=== PATIENT | female | born 1955 | race Caucasian/White ===

== ENCOUNTER 2016-10-09 21:12 | Inpatient (IN) | payer BC ==
[~2016-10-09] VITALS: Ht 170.2 cm; Wt 55.0 kg
[2016-10-09] MEDS ORDERED: SODIUM CHLORIDE 0.9% 500ML 500 ML IV STA (21:53)
[2016-10-09] MEDS ORDERED: ONDANSETRON INJ 2 MG/ML 2 ML VIAL IV STA (21:53)
[2016-10-09] MEDS ORDERED: MoRPHine SULFATE 4 MG/ML 1 ML CARP\\VIAL IV STA (21:53)
[2016-10-09] MEDS ORDERED: SODIUM CHLORIDE 0.9% 1000ML 1,000 ML IV STA ×2 (21:53→22:04)
[2016-10-09 22:08] LABS: BASO % 0.2 %; BASO ABS # 0.02 K/uL (0-0.2); COMPLETE YES; EOS % 0.7 %; HEMATOCRIT 40.3 % (37-47); IG% 0.3 %; LYMPH % 12.5 %; LYMPH ABS # 1.33 K/uL (1.2-3.4); MEAN CORPUSCULAR HEMOGLOBIN 30.6 pg (25-34); MEAN PLATELET VOLUME 10.6 fL (7.4-10.4); MONO % 5.9 %; NEUT % 80.4 %; PLATELET COUNT 234 K/uL (130-400); RED BLOOD COUNT 4.48 M/uL (4.2-5.4); WHITE BLOOD COUNT 10.61 K/uL (4.8-10.8)
[2016-10-09] MEDS ORDERED: OPTIRAY 320 IV PRN (22:15)
[2016-10-09] MEDS ORDERED: FENTANYL CITRATE INJ 50 MCG/1 ML 2 ML VIAL IV STA ×2 (22:16→22:43)
[2016-10-09 22:23] LABS: PROTHROMBIN TIME (PATIENT) 10.7 SECONDS (9.0-12.0)
--- NOTE | 2016-10-09 22:24 | DIAGNOSTIC IMAGING REPORT ---
CHEST ONE VIEW PORTABLE CLINICAL HISTORY: Chest pain. COMPARISON STUDY: No previous studies for comparison. FINDINGS: Positioning on this exam is suboptimal. There is no pneumothorax or pleural effusion. There is no evidence of pulmonary edema. Cardiac size is normal. Nipple shadows project over the chest. IMPRESSION: No acute cardiopulmonary findings. Electronically signed by: Alphonso Tyler M.D. 10/09/2016 10:22 PM Dictated Date/Time: 10/09/2016 10:21 PM
[2016-10-09 22:26] LABS: ALT/SGPT 35 U/L (12-78); BLOOD UREA NITROGEN 20 mg/dl (7-18); BUN/CREATININE RATIO 24.1 (10-20); CALCIUM 9.6 mg/dl (8.5-10.1); CARBON DIOXIDE 29 mmol/L (21-32); CHLORIDE 102 mmol/L (98-107); CREATININE 0.83 mg/dl (0.60-1.20); GLUCOSE 159 mg/dl (70-99); MAGNESIUM 2.1 mg/dl (1.8-2.4); POTASSIUM 3.7 mmol/L (3.5-5.1); SODIUM 141 mmol/L (136-145)
[2016-10-09 22:30] LABS: ALKALINE PHOSPHATASE 98 U/L (45-117); AST/SGOT 33 U/L (15-37); CKMB/CK RATIO 1.4 (0-3.0)
--- NOTE | 2016-10-09 22:47 | DIAGNOSTIC IMAGING REPORT ---
CT ANGIOGRAPHY OF THE CHEST, ABDOMEN, AND PELVIS CLINICAL HISTORY: Chest and abdominal pain. COMPARISON STUDY: Chest radiograph performed earlier today. TECHNIQUE: Before and following the IV administration of 116 mL of Optiray-320, helical axial images of the chest, abdomen and pelvis were obtained. Maximal intensity projections and sagittal and coronal reformats were viewed on an independent 3D workstation. IV contrast was administered without complication. CT DOSE: 642.64 mGy.cm FINDINGS: The caliber of the aorta is normal. There is no evidence for intramural hematoma or dissection within the thoracic or abdominal aorta. Central airways are patent. Lungs are clear. There is no thoracic lymphadenopathy. No pneumothorax or pleural effusion is present. No pneumatosis, free air or portal venous gas is present. Arterial phase images of the liver, spleen, adrenal glands, kidneys and pancreas are unremarkable. Evaluation of the abdomen and pelvis is suboptimal given the lack of oral contrast. The caliber and wall thickness of small and large bowel are normal. There is a 5.9 x 4.5 cm mass-like abnormality along the left posterior lateral aspect of the uterus. This may be related to the left ovary. This is suboptimally assessed on this exam. The appendix is not visualized. There is no right lower quadrant inflammation. Skeletal structures are unremarkable. There is no hydronephrosis. No biliary or pancreatic ductal dilatation is present. IMPRESSION: 1. No aortic dissection. No acute process within the chest. 2. 5.9 x 4.5 cm mass-like abnormality along the left posterior aspect of the uterus. This is suboptimally assessed on this exam but likely arises from the left ovary and a pelvic ultrasound is recommended to evaluate for a mass. Electronically signed by: Alphonso Tyler M.D. 10/09/2016 10:45 PM Dictated Date/Time: 10/09/2016 10:30 PM
[2016-10-09] MEDS ORDERED: ACET-1256 PO (23:00)
[2016-10-09 23:26] LABS: URINE APPEARANCE CLEAR (CLEAR); URINE BILIRUBIN NEG (NEG); URINE COLOR YELLOW; URINE EPITHELIAL CELL AUTO >30 /lpf (0-5); URINE NITRITE NEG (NEG); URINE PH 5.5 (4.5-7.5); URINE SPECIFIC GRAVITY 1.023 (1.000-1.030); UROBILINOGEN NEG (NEG); ZZUR CULT IF INDIC CLEAN CATCH NO
[2016-10-09 23:37] LABS: MANUAL MICROSCOPIC REQUIRED? NO; REVIEW REQ? YES
[2016-10-09 23:41] LABS: PREG INTERNAL NEGATIVE QC NEG CLEAR BACKGROUND; PREG INTERNAL POSITIVE QC POS CONTROL LINE
[2016-10-09 23:58] LABS: ISTAT CREATININE 0.7 mg/dl (0.6-1.3); ISTAT HEMOGLOBIN 13.3 g/dl (12.0-16.0); ISTAT IONIZED CALCIUM 1.01 mmol/l (1.12-1.32)
[2016-10-10] VITALS (9 sets, daily range): BP systolic 100–123; BP diastolic 59–74; PULSE 56–90; TEMP 36.4–36.7; O2SAT 95–98; Ht 170.2 cm; Wt 55.0 kg
[2016-10-10] MEDS ORDERED: LACTATED RINGER'S 1000ML 1,000 ML IV SCH (00:28)
[2016-10-10] MEDS ORDERED: FENTANYL CITRATE INJ 50 MCG/1 ML 2 ML VIAL IV STA (00:29)
[2016-10-10] MEDS ORDERED: ONDANSETRON INJ 2 MG/ML 2 ML VIAL IV STA (00:38)
--- NOTE | 2016-10-10 00:44 | EMERGENCY ROOM VISIT NOTE ---
History First contact with patient: 21:43 Chief Complaint: ABDOMINAL PAIN Stated Complaint: SEVERE ABDOMINAL PAIN Nursing Triage Summary: see triage note History of Present Illness The patient is a 61 year old female who presents to the Emergency Room with complaints of severe sudden onset of left lower dominant pain that radiates up her chest described as severe, 10 out of 10. Nothing makes it better or worse. Patient remains of nausea. No history of similar symptoms in the past. She had an appendectomy many years ago. Patient states she is healthy and has no medical problems. Patient also states she feels lightheaded and weak. Patient denies fever, chills, cough, congestion, back pain, leg pain, numbness, tingling. No IV drug abuse. No recent alcohol. Review of Systems See HPI for pertinent positives & negatives. A total of 10 systems reviewed and were otherwise negative. Past Medical/Surgical History Appendectomy Social History Smoking Status: Never Smoker Smokeless Tobacco Use: No Drug Use: none Marital Status: Housing Status: lives with family Current/Historical Medications Scheduled Acetaminophen (Tylenol), 1,000 MG PO PRN UD Allergies Coded Allergies: No Known Allergies (Unverified , NONE, 06/08/09) Physical Exam Vital Signs Date Time Temp Pulse Resp B/P Pulse Ox O2 Delivery O2 Flow Rate FiO2 10/09/16 22:30 81 10/09/16 22:07 100 Room Air 10/09/16 22:06 100 Room Air 10/09/16 21:15 36.4 63 24 125/76 100 Room Air Physical Exam VITALS: Vitals are noted on the nurse's note and reviewed by myself. Vital signs stable. GENERAL: White female who appears in extreme pain diaphoretic SKIN: The skin was without rashes, erythema, edema, or bruising. There is no tenting of the skin. Capillary reflex less than 2 seconds. HEAD: Normocephalic atraumatic. EARS: External auditory canals clear, tympanic membranes pearly candelario without erythema or effusion bilaterally. EYES: Pupils equal round and reactive to light and accommodation. Conjunctivae without injection, sclerae without icterus. Extraocular movements intact. NOSE: Patent, turbinates without inflammation or discharge. MOUTH: Mucous membranes moist. Pharynx without erythema or exudate. Uvula midline. Airway patent. Tongue does not deviate. NECK: Supple without nuchal rigidity. No lymphadenopathy. No thyromegaly. Cervical spine is nontender. No JVD. HEART: Regular rate and rhythm without murmurs gallops or rubs. LUNGS: Clear to auscultation bilaterally without wheezes, rales or rhonchi. No dullness to percussion. No retractions or accessory muscle use. ABDOMEN: Positive bowel sounds x 4. Normal tympanic percussion. Soft, diffusely tender to palpation, without masses or organomegaly. Bellamy sign negative. + guarding and rebound tenderness. No CVA tenderness MUSCULOSKELETAL: No muscle atrophy, erythema, or edema noted. +2 peripheral pulses throughout NEURO: Patient was alert and oriented to person place and time. Normal sensation to light and sharp touch. No focal neurological deficits. Medical Decision & Procedures Laboratory Results 10/09/16 22:00 Red Blood Count 4.48, Mean Corpuscular Volume 90.0, Mean Corpuscular Hemoglobin 30.6, Mean Corpuscular Hemoglobin Concent 34.0, Mean Platelet Volume 10.6, Neutrophils (%) (Auto) 80.4, Lymphocytes (%) (Auto) 12.5, Monocytes (%) (Auto) 5.9, Eosinophils (%) (Auto) 0.7, Basophils (%) (Auto) 0.2, Neutrophils # (Auto) 8.53, Lymphocytes # (Auto) 1.33, Monocytes # (Auto) 0.63, Eosinophils # (Auto) 0.07, Basophils # (Auto) 0.02 10/09/16 22:00 Test 10/09/16 21:57 10/09/16 22:00 10/09/16 22:02 Bedside Lactic Acid Venous 2.02 mmol/L (0.90-1.70) White Blood Count 10.61 K/uL (4.8-10.8) Red Blood Count 4.48 M/uL (4.2-5.4) Hemoglobin 13.7 g/dL (12.0-16.0) Hematocrit 40.3 % (37-47) Mean Corpuscular Volume 90.0 fL (80-100) Mean Corpuscular Hemoglobin 30.6 pg (25-34) Mean Corpuscular Hemoglobin Concent 34.0 g/dl (32-36) Platelet Count 234 K/uL (130-400) Mean Platelet Volume 10.6 fL (7.4-10.4) Neutrophils (%) (Auto) 80.4 % Lymphocytes (%) (Auto) 12.5 % Monocytes (%) (Auto) 5.9 % Eosinophils (%) (Auto) 0.7 % Basophils (%) (Auto) 0.2 % Neutrophils # (Auto) 8.53 K/uL (1.4-6.5) Lymphocytes # (Auto) 1.33 K/uL (1.2-3.4) Monocytes # (Auto) 0.63 K/uL (0.11-0.59) Eosinophils # (Auto) 0.07 K/uL (0-0.5) Basophils # (Auto) 0.02 K/uL (0-0.2) RDW Standard Deviation 44.2 fL (36.4-46.3) RDW Coefficient of Variation 13.4 % (11.5-14.5) Immature Granulocyte % (Auto) 0.3 % Immature Granulocyte # (Auto) 0.03 K/uL (0.00-0.02) Prothrombin Time 10.7 SECONDS (9.0-12.0) Prothromb Time International Ratio 1.0 (0.9-1.1) Activated Partial Thromboplast Time 25.0 SECONDS (21.0-31.0) Partial Thromboplastin Ratio 1.0 Urine Color YELLOW Urine Appearance CLEAR (CLEAR) Urine pH 5.5 (4.5-7.5) Urine Specific [place] 1.023 (1.000-1.030) Urine Protein TRACE (NEG) Urine Glucose (UA) NEG (NEG) Urine Ketones TRACE (NEG) Urine Occult Blood NEG (NEG) Urine Nitrite NEG (NEG) Urine Bilirubin NEG (NEG) Urine Urobilinogen NEG (NEG) Urine Leukocyte Esterase NEG (NEG) Est Creatinine Clear Calc Drug Dose 62.6 ml/min Estimated GFR () 88.8 Estimated GFR (Non- 76.6 BUN/Creatinine Ratio 24.1 (10-20) Calcium Level 9.6 mg/dl (8.5-10.1) Magnesium Level 2.1 mg/dl (1.8-2.4) Total Bilirubin 0.3 mg/dl (0.2-1) Direct Bilirubin 0.1 mg/dl (0-0.2) Aspartate Amino Transf (AST/SGOT) 33 U/L (15-37) Alanine Aminotransferase (ALT/SGPT) 35 U/L (12-78) Alkaline Phosphatase 98 U/L (45-117) Total Creatine Kinase 77 U/L (26-192) Creatine Kinase MB 1.1 ng/ml (0.5-3.6) Creatine Kinase MB Ratio 1.4 (0-3.0) Troponin I < 0.015 ng/ml (0-0.045) Total Protein 7.2 gm/dl (6.4-8.2) Albumin 4.0 gm/dl (3.4-5.0) Lipase 267 U/L (73-393) Human Chorionic Gonadotropin, Qual NEG (NEG) Bedside Hemoglobin 13.3 g/dl (12.0-16.0) Bedside Hematocrit 39 % (37-47) Bedside Sodium 140 mEq/L (135-144) Bedside Potassium 4.0 mEq/L (3.3-5.0) Bedside Chloride 101 mEq/L (101-112) Bedside Total CO2 27 mEq/l (24-31) Anion Gap 16.0 mmol/L (16-25) Bedside Blood Urea Nitrogen 24 mg/dl (7-18) Bedside Creatinine 0.7 mg/dl (0.6-1.3) Bedside Glucose (other) 158 mg/dl (70-99) Bedside Ionized Calcium (Vinicius) 1.01 mmol/l (1.12-1.32) Medications Administered Medications (Trade) Dose Ordered Sig/Earnest Route Start Time Stop Time Status Last Admin Dose Admin Morphine Sulfate (MoRPHine SULFATE INJ) 4 mg NOW STAT IV 10/09/16 21:53 10/09/16 21:56 DC 10/09/16 22:11 4 MG Ondansetron HCl 4 mg 4 mg NOW STAT IV 10/09/16 21:53 10/09/16 21:56 DC 10/09/16 22:10 4 MG Sodium Chloride 500 ml @ 999 mls/hr Q31M STAT IV 10/09/16 21:53 10/09/16 22:23 DC 10/09/16 22:31 999 MLS/HR Sodium Chloride 1,000 ml @ 125 mls/hr Q8H STAT IV 10/09/16 21:53 10/10/16 05:52 10/09/16 22:31 125 MLS/HR Sodium Chloride (Nss 1000ml) 1,000 ml @ 999 mls/hr Q1H1M STAT IV 10/09/16 22:04 10/09/16 23:04 DC 10/09/16 22:30 999 MLS/HR Fentanyl Citrate (Fentanyl Inj) 50 mcg NOW STAT IV 10/09/16 22:16 10/09/16 22:18 DC 10/09/16 22:29 50 MCG Fentanyl Citrate (Fentanyl Inj) 50 mcg NOW STAT IV 10/09/16 22:43 10/09/16 22:45 DC 10/09/16 22:43 50 MCG Fentanyl Citrate (Fentanyl Inj) 50 mcg NOW STAT IV 10/10/16 00:29 10/10/16 00:30 DC 10/10/16 00:29 50 MCG ED Course Prior records/ancillary studies reviewed. Triage Nursing notes reviewed. Additional history obtained from family. The patient's history was concerning for abdominal pain. Differential diagnosis: Etiologies such as dissection, torsion, cardiac, diverticulitis, PUD, biliary pathology, UTI, pancreatitis, obstruction, mesenteric ischemia, aortic pathology , infections, inflammatory bowel disease, renal colic, as well as others were entertained. Physical examination findings: As above. ER treatment provided: 2 IV lines, morphine, fentanyl, Zofran On reassessment the patient felt better. Diagnostics interpreted by me: ECG: Normal sinus, normal intervals, no acute ST-T wave changes. Impression normal sinus rhythm interpreted by myself The labs revealed stable H&H. Elevated lactic acid. Imaging studies: US PELVIC/ENDOVAG: Hypoechoic left adnexal mass measuring 5.4 cm with small echogenic and tiny cystic components. This moves independently from the uterus with compression. No internal vascular flow detected. Differential considerations include torsed ovary, solid ovarian mass, or pedunculated subserosal fibroid. Correlate with symptoms. MRI could be used for further evaluation if indicated. Right ovary is unremarkable. Trace free fluid in the pelvis. Radiologist: Darren Cleary MD Study ready at 00:04 and initial results transmitted at 00:22 Critical Value Communications Clear Time Type Notes 10/10/16 00:26 Call Doctor Regarding Above CT ANGIOGRAPHY OF THE CHEST, ABDOMEN, AND PELVIS CLINICAL HISTORY: Chest and abdominal pain. COMPARISON STUDY: Chest radiograph performed earlier today. TECHNIQUE: Before and following the IV administration of 116 mL of Optiray-320, helical axial images of the chest, abdomen and pelvis were obtained. Maximal intensity projections and sagittal and coronal reformats were viewed on an independent 3D workstation. IV contrast was administered without complication. CT DOSE: 642.64 mGy.cm FINDINGS: The caliber of the aorta is normal. There is no evidence for intramural hematoma or dissection within the thoracic or abdominal aorta. Central airways are patent. Lungs are clear. There is no thoracic lymphadenopathy. No pneumothorax or pleural effusion is present. No pneumatosis, free air or portal venous gas is present. Arterial phase images of the liver, spleen, adrenal glands, kidneys and pancreas are unremarkable. Evaluation of the abdomen and pelvis is suboptimal given the lack of oral contrast. The caliber and wall thickness of small and large bowel are normal. There is a 5.9 x 4.5 cm mass-like abnormality along the left posterior lateral aspect of the uterus. This may be related to the left ovary. This is suboptimally assessed on this exam. The appendix is not visualized. There is no right lower quadrant inflammation. Skeletal structures are unremarkable. There is no hydronephrosis. No biliary or pancreatic ductal dilatation is present. IMPRESSION: 1. No aortic dissection. No acute process within the chest. 2. 5.9 x 4.5 cm mass-like abnormality along the left posterior aspect of the uterus. This is suboptimally assessed on this exam but likely arises from the left ovary and a pelvic ultrasound is recommended to evaluate for a mass. CHEST ONE VIEW PORTABLE CLINICAL HISTORY: Chest pain. COMPARISON STUDY: No previous studies for comparison. FINDINGS: Positioning on this exam is suboptimal. There is no pneumothorax or pleural effusion. There is no evidence of pulmonary edema. Cardiac size is normal. Nipple shadows project over the chest. IMPRESSION: No acute cardiopulmonary findings. Electronically signed by: Alphonso Tyler M.D. 10/09/2016 10:22 PM Electronically signed by: Alphonso Tyler M.D. 10/09/2016 10:45 PM Consultation: A consultation was placed with the OB, Dr Long. The case was discussed and diagnostics were reviewed. The patient was evaluated in the ER for further treatment. She evaluated the patient will take the patient for for possible ovarian torsion. Exam and history seem consistent with left ovarian torsion. Patient is being taken to the OR for further evaluation treatment by OB. She has a stable H&H. Blood bank was reviewed. No leukocytosis. Elevated lactic acid. By the evaluation outlined above emergent etiologies such as appendicitis, diverticulitis, PUD, biliary pathology, UTI, pancreatitis, obstruction, mesenteric ischemia, aortic pathology, infections, inflammatory bowel disease, renal colic, as well as others were deemed relatively unlikely. The pt informed about the findings as listed above. All questions were answered and pleased with the treatment. Case reviewed with my Attending Medical Decision As above Impression Primary Impression: Torsion of left ovary and ovarian pedicle Critical Care I have personally spent greater than 30 minutes of critical care time in the direct management of this patient. This includes bedside care, interpretation of diagnostic studies, and testing, discussion with consultants, patient, and family members, and other required patient management activities. This 30 minutes is in excess of all separately billable procedures. Departure Information Referrals Vipul Riojas M.D. (PCP) Patient Instructions My [facility]
[2016-10-10] MEDS ORDERED: MoRPHine SULFATE 2 MG/ML CARP ONE (00:47)
[2016-10-10] MEDS ORDERED: GLYCOPYRROLATE INJ 0.2 MG/ML VIAL ONE (00:47)
[2016-10-10] MEDS ORDERED: PROPOFOL IV EMULSION 10 MG/ML 20 ML VIAL IV ONE (00:47)
[2016-10-10] MEDS ORDERED: DEXAMETHASONE SOD INJ 4 MG/ML VIAL ONE (00:47)
[2016-10-10] MEDS ORDERED: ROCURONIUM BROMIDE 10 MG/ML 5 ML VIAL ONE (00:47)
[2016-10-10] MEDS ORDERED: LIDOCAINE HCL 2% 2 ML VIAL (20MG/ML) ONE (00:47)
[2016-10-10] MEDS ORDERED: ONDANSETRON INJ 2 MG/ML 2 ML VIAL ONE (00:47)
[2016-10-10] MEDS ORDERED: FENTANYL CITRATE INJ 50 MCG/1 ML 2 ML VIAL ONE (00:47)
[2016-10-10] MEDS ORDERED: NEOSTIGMINE METHYLSULFATE 5 MG/5 ML SYR ONE (00:47)
[2016-10-10] MEDS ORDERED: SUCCINYLCHOLINE CHLORIDE 20 MG/ML 10 ML VIAL IV ONE (00:47)
[2016-10-10] MEDS ORDERED: MIDAZOLAM HCL 1 MG/ML 2ML VIAL ONE (00:47)
--- NOTE | 2016-10-10 01:10 | HISTORY & PHYSICAL EXAMINATION ---
DATE OF ADMISSION: 10/10/2016 PRINCIPAL DIAGNOSES: Torsion of left ovary and acute abdominal pain. PRINCIPAL PROCEDURE: Exploratory laparotomy, left salpingo-oophorectomy and right salpingectomy. HISTORY OF PRESENT ILLNESS: The patient is a 61-year-old G4, P4-0-0-3 white female, postmenopausal, who presented with sudden onset of pain in her left lower quadrant approximately 1700 hours on 10/09/2016. Pain got progressively worse, made her nauseous and vomit. She denies any fever or chills. No diarrhea, no vaginal bleeding, no dysuria or pain with urination. She came to the Emergency Room. CT scan was first performed as she appeared to be presenting as a dissecting aortic aneurysm. The aorta, colon and bladder all appeared to be within normal limits. There is a mass behind the uterus on the left that is measuring 6 cm. Ultrasound confirmed the presence of this mass, which appears to be the left ovary. There is no blood supply to this mass consistent with a torsion. There is no free fluid in the pelvis, right ovary could not be identified. Because of the torsion and her continued pain, we will proceed to the OR for the exploratory laparotomy, left salpingectomy, left salpingo-oophorectomy and right salpingectomy. PAST MEDICAL HISTORY: Remarkable for osteopenia and a colon polyp that was benign. PAST SURGICAL HISTORY: Appendectomy in 1978. ALLERGIES: She has no known drug allergies, but NARCOTICS DO MAKE HER NAUSEOUS. SOCIAL HISTORY: She does not smoke. She drinks alcohol socially. OBSTETRICAL AND GYNECOLOGICAL HISTORY: No history of PID, VD or herpes. Her pap smears have been within normal limits, the most recent one was in 2013. She has had 4 vaginal births. She had one demise at 28 weeks. The appendectomy was actually done at approximately 12 weeks' gestation during . FAMILY HISTORY: Remarkable for family history of breast cancer and ovarian cancer. PHYSICAL EXAMINATION: VITAL SIGNS: She is afebrile. Vital signs are stable. LUNGS: Clear to auscultation. HEART: Regular rate and rhythm. No murmurs or gallops. ABDOMEN: Soft. There is hypoactive bowel sounds present. She is tender to palpation of the left lower quadrant and there is rebound present. There is milder tenderness in the right lower quadrant and upper quadrants. PELVIC: Deferred at this point because of the patient's discomfort. EXTREMITIES: Without edema and there is no calf tenderness present. ASSESSMENT AND PLAN: A 61-year-old multiparous female who is menopausal now with acute left lower quadrant pain with what appears to be a torsed left ovary with a cyst present on ultrasound and CT scan. We will proceed to the OR for exploratory laparotomy, left salpingo-oophorectomy and right salpingectomy. Please see the orders for further directions.
[2016-10-10] MEDS ORDERED: CEFAZOLIN SOD 1000MG/55 ML D5W IV ONE (01:31)
[2016-10-10] MEDS ORDERED: EpHEDrine SULFATE 50MG/5ML SYR ONE (02:09)
[2016-10-10] MEDS ORDERED: KETOROLAC TROMETHAMINE 30 MG/ML VIAL ONE ×2 (02:14→04:31)
[2016-10-10] MEDS ORDERED: D5W AND LACTATED RINGERS 1,000 ML IV SCH (02:50)
--- NOTE | 2016-10-10 02:50 | [facility] Operative Report ---
Operative Report Operative Date Oct 10, 2016. 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 Evelyn Long Varnish Maker Helper Surgeon(s) None Estimated Blood Loss 25ml Findings left ovary completely replaced by fibrotic , dense tumor. smooth capsule with obvious torsion including fallopian tube. right ovary atrophic., uterus & tube are normal. Fluids 600 Specimens A. Left fallopian tube and ovary B. Right fallopian tube Drains Mason to straight drainage Anesthesia GET Complication(s) None Disposition Surgical ICU I attest to the content of the Intraoperative Record and any orders documented therein. Any exceptions are noted below.
[2016-10-10] MEDS ORDERED: LACTATED RINGER'S 1000ML 1,000 ML IV PRN (02:52)
[2016-10-10] MEDS ORDERED: KETOROLAC TROMETHAMINE 30 MG/ML VIAL IV. PRN (03:00)
[2016-10-10] MEDS ORDERED: PROMETHAZINE HCL INJ 25 MG in SODIUM CHLORIDE 0.9% 50ML 50 ML IV PRN (03:00)
[2016-10-10] MEDS ORDERED: METOCLOPRAMIDE HCL INJ 5 MG/ML 2 ML VIAL IV PRN (03:00)
[2016-10-10] MEDS ORDERED: MEPERIDINE HCL 50 MG/ML CARP IV PRN (03:00)
[2016-10-10] MEDS ORDERED: ONDANSETRON INJ 2 MG/ML 2 ML VIAL IV PRN (03:00)
[2016-10-10] MEDS ORDERED: FENTANYL CITRATE INJ 50 MCG/1 ML 2 ML VIAL IV PRN (03:00)
[2016-10-10] MEDS ORDERED: MAGNESIUM HYDROXIDE SUSP 30 ML UDC PO PRN (03:00)
[2016-10-10] MEDS ORDERED: BISACODYL 10 MG SUPP PR PRN (03:00)
[2016-10-10] MEDS ORDERED: DiphenhydrAMINE HCL 50 MG/ML VIAL IV PRN (03:00)
[2016-10-10] MEDS ORDERED: ACETAMINOPHEN 500 MG TAB PO PRN (03:00)
[2016-10-10] MEDS ORDERED: MEPERIDINE HCL 75 MG/ML CARP IV PRN (03:00)
[2016-10-10] MEDS ORDERED: SENNA 8.6 MG TAB PO PRN (03:00)
--- NOTE | 2016-10-10 03:03 | Anesthesiology Progress Note ---
Anesthesia Post Op Note Date & Time Oct 10, 2016 at 03:03 Vital Signs Pain Intensity: 0.0 Vital Signs Past 12 Hours Date Time Temp Pulse Resp B/P Pulse Ox O2 Delivery O2 Flow Rate FiO2 10/10/16 02:45 36.5 70 16 126/73 98 Nasal Cannula 4 10/10/16 00:38 55 16 147/84 97 Nasal Cannula 2.0 10/09/16 22:30 81 10/09/16 22:07 100 Room Air 10/09/16 22:06 100 Room Air 10/09/16 21:15 36.4 63 24 125/76 100 Room Air Notes Mental Status: alert / awake / arousable, participated in evaluation Pt Amnestic to Procedure: Yes Nausea / Vomiting: adequately controlled Pain: adequately controlled Airway Patency, RR, SpO2: stable & adequate BP & HR: stable & adequate Hydration State: stable & adequate Anesthetic Complications: no major complications apparent Pt doing well.
[2016-10-10] MEDS ORDERED: CEFAZOLIN IV 1,000 MG in DEXTROSE 5% 50ML 50 ML IV SCH (06:00)
--- NOTE | 2016-10-10 06:33 | [facility] Post Operative Brief Note ---
Immediate Operative Summary Operative Date Oct 10, 2016. Pre-Operative Diagnosis Torsion of left ovary and acute abdominal pain Post-Operative Diagnosis Same as pre-operative Procedure(s) Performed Exploratory laparotomy with left salpingo-oopherectomy and right salpingectomy Surgeon Dr. Evelyn Long Band Saw Filer Surgeon(s) None Estimated Blood Loss 25ml Fluids (cc crystalloids) 600 Specimens A. Left fallopian tube and ovary B. Right fallopian tube
--- NOTE | 2016-10-10 06:36 | OB/GYN Progress Note ---
SOFTWARE FIRMWARE ENGINEER Progress Note Date of Service Oct 10, 2016. Subjective conversation w/ patient, physical exam Voiding: yaoub catheter in place Diet Tolerance: Clear Liquids Notes: pain controlled for the most part by IV toradol Review of Systems Constitutional: No chills, No fatigue, No fever, No problem reported, No sweats , No weakness, No weight loss Objective Vital Signs Date Time Temp Pulse Resp B/P Pulse Ox O2 Delivery O2 Flow Rate FiO2 10/10/16 05:55 36.6 90 16 100/65 98 Room Air 10/10/16 04:55 36.4 71 16 117/74 95 Room Air 10/10/16 04:25 36.4 76 14 113/72 95 Room Air 10/10/16 03:55 95 Room Air 10/10/16 03:55 36.5 64 14 123/72 Room Air 10/10/16 03:40 36.4 75 16 120/73 97 Room Air 10/10/16 03:15 58 16 128/76 96 Room Air 10/10/16 03:11 58 16 126/82 95 Room Air 10/10/16 03:05 61 16 126/77 95 Room Air 10/10/16 03:00 61 16 130/78 96 Room Air 10/10/16 02:56 64 16 125/72 100 Room Air 10/10/16 02:45 36.5 70 16 126/73 98 Nasal Cannula 4 10/10/16 00:38 55 16 147/84 97 Nasal Cannula 2.0 10/09/16 22:30 81 10/09/16 22:07 100 Room Air 10/09/16 22:06 100 Room Air 10/09/16 21:15 36.4 63 24 125/76 100 Room Air Physical Exam General Appearance: WELL-APPEARING Abdomen: soft Incision Description: Clean, Dry & Intact Extremities: no calf tenderness Laboratory Results Last 24 Hours Test 10/09/16 21:57 10/09/16 22:00 10/09/16 22:02 Bedside Lactic Acid Venous 2.02 mmol/L White Blood Count 10.61 K/uL Red Blood Count 4.48 M/uL Hemoglobin 13.7 g/dL Hematocrit 40.3 % Mean Corpuscular Volume 90.0 fL Mean Corpuscular Hemoglobin 30.6 pg Mean Corpuscular Hemoglobin Concent 34.0 g/dl Platelet Count 234 K/uL Mean Platelet Volume 10.6 fL Neutrophils (%) (Auto) 80.4 % Lymphocytes (%) (Auto) 12.5 % Monocytes (%) (Auto) 5.9 % Eosinophils (%) (Auto) 0.7 % Basophils (%) (Auto) 0.2 % Neutrophils # (Auto) 8.53 K/uL Lymphocytes # (Auto) 1.33 K/uL Monocytes # (Auto) 0.63 K/uL Eosinophils # (Auto) 0.07 K/uL Basophils # (Auto) 0.02 K/uL RDW Standard Deviation 44.2 fL RDW Coefficient of Variation 13.4 % Immature Granulocyte % (Auto) 0.3 % Immature Granulocyte # (Auto) 0.03 K/uL Prothrombin Time 10.7 SECONDS Prothromb Time International Ratio 1.0 Activated Partial Thromboplast Time 25.0 SECONDS Partial Thromboplastin Ratio 1.0 Urine Color YELLOW Urine Appearance CLEAR Urine pH 5.5 Urine Specific [place] 1.023 Urine Protein TRACE Urine Glucose (UA) NEG Urine Ketones TRACE Urine Occult Blood NEG Urine Nitrite NEG Urine Bilirubin NEG Urine Urobilinogen NEG Urine Leukocyte Esterase NEG Urine WBC (Auto) 1-5 /hpf Urine RBC (Auto) 0-4 /hpf Urine Hyaline Casts (Auto) 10-30 /lpf Urine Epithelial Cells (Auto) >30 /lpf Urine Bacteria (Auto) NEG Urine Renal Epithelial Cells 0-5 /lpf Sodium Level 141 mmol/L Potassium Level 3.7 mmol/L Chloride Level 102 mmol/L Carbon Dioxide Level 29 mmol/L Anion Gap 10.0 mmol/L 16.0 mmol/L Blood Urea Nitrogen 20 mg/dl Creatinine 0.83 mg/dl Est Creatinine Clear Calc Drug Dose 62.6 ml/min Estimated GFR () 88.8 Estimated GFR (Non- 76.6 BUN/Creatinine Ratio 24.1 Random Glucose 159 mg/dl Calcium Level 9.6 mg/dl Magnesium Level 2.1 mg/dl Total Bilirubin 0.3 mg/dl Direct Bilirubin 0.1 mg/dl Aspartate Amino Transf (AST/SGOT) 33 U/L Alanine Aminotransferase (ALT/SGPT) 35 U/L Alkaline Phosphatase 98 U/L Total Creatine Kinase 77 U/L Creatine Kinase MB 1.1 ng/ml Creatine Kinase MB Ratio 1.4 Troponin I < 0.015 ng/ml Total Protein 7.2 gm/dl Albumin 4.0 gm/dl Lipase 267 U/L Human Chorionic Gonadotropin, Qual NEG Bedside Hemoglobin 13.3 g/dl Bedside Hematocrit 39 % Bedside Sodium 140 mEq/L Bedside Potassium 4.0 mEq/L Bedside Chloride 101 mEq/L Bedside Total CO2 27 mEq/l Bedside Blood Urea Nitrogen 24 mg/dl Bedside Creatinine 0.7 mg/dl Bedside Glucose (other) 158 mg/dl Bedside Ionized Calcium (Vinicius) 1.01 mmol/l Assessment and Plan Continue Routine Care: stable post-op course D/C ayoub catheter this morning advance diet as tolerated may want to go home this evening.
[2016-10-10 06:47] LABS: HEMATOCRIT 38.6 % (37-47)
--- NOTE | 2016-10-10 07:17 | DIAGNOSTIC IMAGING REPORT ---
PELVIC ULTRASOUND, TRANSABDOMINAL AND TRANSVAGINAL HISTORY: pelvic mass on CT COMPARISON: Chest abdomen pelvis CTA 10/09/2016. FINDINGS: Uterus: 5.8 x 3.5 x 4.0 cm. The uterus is retroflexed. Endometrial stripe: 3 mm in thickness. Right ovary: Normal in size and demonstrates normal color flow. Left ovary: There is a solid and cystic mass within the left adnexa which measures 4.7 x 4.7 x 5.0 cm. This contains a focal echogenic nodule measuring 3.8 x 1.2 x 2.9 cm and a cyst measuring 2.7 x 2.3 x 1.9 cm. This does demonstrate areas of shadowing. This is separate from the uterus. Miscellaneous:Small amount fluid within the left adnexa. IMPRESSION: 1. Normal uterus and right ovary. 2. A 5.0 x 4.7 x 4.7 cm solid and cystic mass within the left adnexa. A normal left ovary is not identified. Therefore, this could represent an ovarian mass, torsed ovary, or less likely a pedunculated fibroid. However, this lesion appears to be separate from the uterus. 3. Small amount of fluid within the left adnexa. Electronically signed by: Jude Peter M.D. 10/10/2016 7:15 AM Dictated Date/Time: 10/10/2016 7:10 AM
--- NOTE | 2016-10-10 10:26 | OPERATIVE REPORT ---
DATE OF OPERATION: 10/10/2016 PREOPERATIVE DIAGNOSIS: Acute abdominal pain with torsion of left ovary and tumor. POSTOPERATIVE DIAGNOSIS: Same. PROCEDURES: Exploratory laparotomy, left salpingo-oophorectomy and right salpingectomy. ESTIMATED BLOOD LOSS: 25 mL. HISTORY OF PRESENT ILLNESS: The patient is a 61-year-old 4, para 4-0-0-3, white female who had a sudden onset of left lower quadrant pain at approximately 1700 hours on 10/09/2016. The pain continued to get progressively worse to the point that it made her nauseous and vomiting. She presented to the Emergency Room with symptoms that appeared to be that of a dissecting aortic aneurysm. A CT scan was obtained and the diagnosis of a torsed left ovarian cyst was made. Ultrasound of the pelvis showed no blood flow going to the left ovary and of a solid mass approximately 6 cm x 5 cm. There was no free fluid. The right ovary appeared to be atrophic. Because of the torsion and the patient's continued pain, we will proceed with exploratory laparotomy for a left salpingo-oophorectomy and right salpingectomy, since we will be in her abdomen at that time. She agrees with this procedure. All questions were answered. GROSS FINDINGS: Uterus is atrophic without abnormalities. Right ovary and fallopian tube are grossly normal. Left tube is torsed and necrotic. The ovary is presently 6 cm in size with a smooth capsule, very firm and fibrotic in nature with a single simple cyst on the surface. PROCEDURE: The patient received adequate general endotracheal anesthesia. She was prepped and draped in the usual sterile fashion. A low transverse skin incision was made with a scalpel and carried to fascia. With the same scalpel, the fascial incision was then extended with Franco scissors. The edges were then grasped with Marcella clamps and the underlying rectus muscles were bluntly sharply dissected off the overlying fascia. The rectus muscles were bluntly divided in the midline and the underlying peritoneum elevated and entered bluntly. The left adnexa was brought into the incision. It was clamped at the cornua with Cecilia clamps and removed. The pedicle was sutured with a Patito stitch of 0 Vicryl x2. Hemostasis was noted to be excellent. The right ovary and tube were brought into the incision as much as could be done. The right fallopian tube was then grasped with a Beaver clamp and mesosalpinx was clamped with a Cecilia. The right fallopian tube was then removed with Metzenbaum scissors. This pedicle was then suture ligated with 0 Vicryl. Hemostasis was noted to be excellent. The abdomen was irrigated with normal saline. The rectus muscles were then brought together in the midline with individual stitches of 0 Vicryl. The fascia was closed in a running fashion with 0 Vicryl. The fat layer was irrigated with normal saline and the skin edges were reapproximated using a subcuticular stitch of 3-0 Vicryl. Urine was clear at the end of the case. The patient tolerated the procedure well. I attest to the content of the Intraoperative Record and any orders documented therein. Any exceptio ns are noted below.
[2016-10-10] MEDS: ACETAMINOPHEN/CODEINE 300/30MG TAB PO PRN ×2 (10:37→14:05)
[2016-10-10] MEDS: IBUPROFEN 600 MG TAB PO PRN ×3 (10:37→22:02)
[2016-10-10] MEDS: HYDROCODONE/ACETAMOPHEN 5/325MG TAB PO PRN (17:44)
[2016-10-11] MEDS: HYDROCODONE/ACETAMOPHEN 5/325MG TAB PO PRN ×2 (02:24→08:14)
[2016-10-11 04:10] VITALS: BP 91/55; PULSE 68; TEMP 36.7; O2SAT 94
--- NOTE | 2016-10-11 07:37 | OB/GYN Progress Note ---
[employer] Progress Note Date of Service Oct 11, 2016. Subjective conversation w/ patient, physical exam, chart review, lab review Ambulation: ambulating normally Voiding: no voiding problems Passing Gas: Yes Diet Tolerance: Regular Diet Objective Vital Signs Date Time Temp Pulse Resp B/P Pulse Ox O2 Delivery O2 Flow Rate FiO2 10/11/16 04:10 36.7 68 20 91/55 94 Room Air 10/10/16 23:30 36.6 68 20 106/62 95 Room Air 10/10/16 23:30 95 Room Air 10/10/16 19:30 36.5 70 20 105/62 97 Room Air 10/10/16 15:30 97 Room Air 10/10/16 15:30 36.7 56 16 100/59 97 Room Air 10/10/16 11:15 36.6 64 18 105/64 98 Room Air 10/10/16 08:00 Room Air Physical Exam General Appearance: WELL-APPEARING Respiratory/Chest: lungs clear Cardiovascular: regular rate, rhythm Abdomen: normal bowel sounds Incision Description: Clean, Dry & Intact Extremities: no calf tenderness Assessment and Plan Post-Op Day Number: 1 Continue Routine Care: home
[2016-10-11] MEDS ORDERED: MTR600X PO (07:38)
[2016-10-11] MEDS ORDERED: HYDR-5688 PO (07:38)
--- NOTE | 2016-10-11 07:39 | Discharge Instructions ---
Discharge Instructions Admission Reason for Admission: Torsion Of Left Ovary And Ovarian Pedicle Discharge Discharge Diagnosis / Problem: ovarian torsion Discharge Goals Goal(s): Routine recovery after surgery Activity Recommendations Activity Limitations: per Instructions/Follow-up section . Instructions / Follow-Up Instructions / Follow-Up ACTIVITY RECOMMENDATIONS: Activity: * During the first week at home, your activity should be similar to that done at the hospital prior to discharge. Your primary activity is in-house walking interspersed with rest periods. Preparing lunch for yourself is acceptable. You may go up and down stairs. Try to stay up progressively longer periods of time to help regain your strength more quickly. * During the second week at home, activities should include some meal preparation, walking to strengthen abdominal muscles and riding in a car. You may drive a car and make brief shopping trips at the end of the second week at home. * Lifting should not exceed 15-20 pounds during the first month after surgery. * Sexual intercourse can usually be resumed about 6 weeks after surgery depending on findings at your post-operative examinations. Bathing: * Showers or baths are permissible. Sitting in four to six inches of hot water (sitz bath) is often comforting after vaginal surgery and is permitted at any time. A sitz bath at bedtime can also assist in a better night's sleep. SPECIAL CARE INSTRUCTIONS: The major discomforts related to surgery have now passed and progressive improvement will occur. The tight uncomfortable feeling in the abdominal, pelvic and back area will gradually fade away. Fatigue may take the longest to disappear; your energy level may take several weeks to return to normal. At times you may become frustrated or impatient over not feeling as well or doing as much as you'd like , but this is a normal reaction to surgery and will pass with time. Vaginal Discharge: * Odorous, blood-tinged or brownish discharge may be present for one to three weeks after surgery. * Pads should be used and not tampons. * Stitches may be passed vaginally. * Bleeding may be somewhat increased approximately two weeks after surgery, which is related to the stitches dissolving. * If bleeding becomes free flowing, notify our office at . Bowel Care: * Constipation after surgery is very common. Foods that promote bowel activity (bran, fruit, prune juice) should be included in your diet. * A capsule, DIALOSE-PLUS, can be purchased without a prescription and can be taken daily (one or two capsules) to assist in promoting bowel activity. * If you have had vaginal surgery involving your rectum, we will discuss this when discharged from the hospital. Catheter or "CYSTO-CATH": * Approximately 80% of "bladder repair" patients will require a catheter at home until the swelling recedes. * Some patients require days to weeks before adequate bladder emptying will resume. * In general, after each time you urinate, un-clamp the catheter again. Measure the amount in the bag. When this is consistently below 100cc, call the office to make an appointment to have the catheter removed. Temperature: * Any fever above 100.4 degrees F should be reported to our office at . FOLLOW-UP: Post-Operative Appointments: * Individual instructions will have been given about the timing of your first examination, but this is usually at the end of the second week home. * You will need to call the office at soon after discharge to make the appointment for your post-op check-up if it has not already been scheduled. * Additional information regarding activity, sexual intercourse and when to return to work will be given at this appointment. WE WISH YOU A SPEEDY RECOVERY! Current Hospital Diet Patient's current hospital diet: Regular Diet Discharge Diet Recommended Diet: Regular Diet Procedures Procedures Performed: Exploratory laparotomy with left salpingo-oopherectomy and right salpingectomy Pending Studies Studies pending at discharge: no Medical Emergencies . Who to Call and When: Medical Emergencies: If at any time you feel your situation is an emergency, please call 911 immediately. . Non-Emergent Contact Non-Emergency issues call your: Primary Care Provider . . "Provider Documentation" section prepared by Miguel Emery. VTE Core Measure Inpt VTE Proph given/why not?: Shani Browning, [facility]
[2016-10-11 07:50] VITALS: BP 100/62; PULSE 62; TEMP 36.3; O2SAT 99
[2016-10-11] MEDS: IBUPROFEN 600 MG TAB PO PRN (08:14)
[2016-10-11 08:17] VITALS: BP 100/62; PULSE 62; TEMP 36.3; O2SAT 99
--- NOTE | 2016-10-14 10:50 | DISCHARGE SUMMARY ---
PRINCIPAL DIAGNOSIS: Left lower quadrant pain, left ovarian torsion and ovarian cyst. PRINCIPAL PROCEDURE: Exploratory laparotomy, left salpingo-oophorectomy and right salpingectomy. HISTORY OF PRESENT ILLNESS: The patient is a 61-year-old G4, P4-0-0-3 white female who is postmenopausal, who presented with sudden onset of pain in her left lower quadrant several hours prior to her arrival in the Emergency Room. She had a CT scan because her symptoms seemed to be more consistent with a dissecting aortic aneurysm; however, her aorta, colon and bladder all appeared to be within normal limits; however, there was a mass behind the uterus on the left measuring 6 cm. Ultrasound confirmed the presence of a solid mass consistent with a torsion of the ovary 6 cm in diameter. She was taken to the OR to do an exploratory laparotomy incision. The ovary which was noted to be torsed along with the tube on the left was removed as was the right fallopian tube. The patient had an uncomplicated postop course. She was eating a regular diet and had good pain control prior to discharge. She remained afebrile during her hospital stay. Her hemoglobin on admission was 13.7 with hematocrit of 40.3. The day of discharge hemoglobin was 12.8, hematocrit 38.6. She was sent home in good condition with a prescription for Percocet 1-2 tablets p.o. q. 4 hours p.r.n. pain and Tylenol as needed. She is to call for a temperature of 101 degrees or higher, heavy vaginal bleeding, burning with urination, pain in her incision redness or drainage or any other concerns.
== END 2016-10-11 09:40 | disposition home or self-care (01) | DRG 743 ==
LOC: ENRESERVTM → ENRESERVDT → C.EDB 21:13 → C.MS4N 10-10 02:56
PROVIDERS: ADMIT Obstetrics & Gynecology; ATTEND Obstetrics & Gynecology
PROC: 0UT10ZZ Resection of Left Ovary, Open Approach (ICD-10-PCS; principal; 2016-10-10 01:15)
PROC: 0UT70ZZ Resection of Bilateral Fallopian Tubes, Open Approach (ICD-10-PCS; principal; 2016-10-10 01:15)
DX: N83.53 Torsion of ovary, ovarian pedicle and fallopian tube (principal); N83.209 Unspecified ovarian cyst, unspecified side

== ENCOUNTER → 2016-10-30 | Outpatient (CLI) | payer BC ==
[~2016-10-30] MED LIST: ACET-1256 PO; HYDR-5688 PO; MTR600X PO
== END | disposition home or self-care (01) ==
LOC: C.MAMM 13:02
PROVIDERS: ATTEND Internal Medicine
DX: M85.88 Other specified disorders of bone density and structure, other site (principal); M85.852 Other specified disorders of bone density and structure, left thigh; M85.851 Other specified disorders of bone density and structure, right thigh

== ENCOUNTER → 2016-12-03 | Outpatient (CLI) | payer BC ==
[2016-12-03 17:04] LABS: URINE APPEARANCE CLEAR (CLEAR); URINE BILIRUBIN NEG (NEG); URINE COLOR DK YELLOW; URINE EPITHELIAL CELL AUTO 0-5 /lpf (0-5); URINE NITRITE POS (NEG); URINE PH 5.5 (4.5-7.5); URINE SPECIFIC GRAVITY 1.016 (1.000-1.030); UROBILINOGEN NEG (NEG)
[2016-12-03 17:11] LABS: MANUAL MICROSCOPIC REQUIRED? NO; REVIEW REQ? NO
== END | disposition home or self-care (01) ==
LOC: C.LABBC 14:25
PROVIDERS: ATTEND Internal Medicine
DX: R35.0 Frequency of micturition (principal)

== ENCOUNTER → 2017-02-26 | Outpatient (CLI) | payer BC | END | disposition home or self-care (01) | LOC: C.PAPS 09:43 | PROVIDERS: ATTEND Obstetrics & Gynecology | DX: Z01.419 Encounter for gynecological examination (general) (routine) without abnormal findings (principal) ==

== ENCOUNTER → 2017-06-17 | Outpatient (CLI) | payer BC ==
--- NOTE | 2017-06-17 15:30 | MAMMOGRAPHY REPORT ---
BILATERAL DIGITAL SCREENING MAMMOGRAM WITH CAD: 06/17/2017 CLINICAL HISTORY: Routine screening. Patient has no complaints. TECHNIQUE: Current study was also evaluated with a Computer Aided Detection (CAD) system. Bilateral CC and MLO views were obtained. COMPARISON: Comparison is made to exams dated: 10/01/2015 mammogram, 10/07/2014 mammogram, 08/12/2013 mammogram, 08/06/2012 mammogram, 05/24/2010 mammogram, and 06/06/2010 ultrasound. BREAST COMPOSITION: The tissue of both breasts is heterogeneously dense, which may obscure small mas ses. FINDINGS: No suspicious masses, calcifications, or areas of architectural distortion are noted in ei ther breast. There has been no significant interval change compared to prior exams. Scattered bilater al benign-appearing calcifications are not significantly changed. 9 mm mass in the right lower inner quadrant is stable dating back to at least the 2010 exam, and considered benign given long-term stab ility. IMPRESSION: ACR BI-RADS CATEGORY 2: BENIGN There is no mammographic evidence of malignancy. A 1 year screening mammogram is recommended. The pa tient will receive written notification of the results. Approximately 10% of breast cancers are not detected with mammography. A negative mammographic report should not delay biopsy if a clinically suggestive mass is present. Stephanie Negro M.D. /:06/17/2017 13:02:16 [employer] Equipment Operator: Emmie CHEUNG(R)(M), [facility] letter sent: Normal 1/2 BI-RADS Code: ACR BI-RADS Category 2: Benign
== END | disposition home or self-care (01) ==
LOC: C.MAMM 12:37
PROVIDERS: ATTEND Obstetrics & Gynecology
DX: Z12.31 Encounter for screening mammogram for malignant neoplasm of breast (principal)